=== PATIENT | female | born 1965 | race Caucasian/White ===

== ENCOUNTER 2016-11-17 11:19 | Emergency (ER) | payer OTHER, MEDICARE ==
[~2016-11-17] VITALS: Ht 160 cm; Wt 86.2 kg
[~2016-11-17 11:19] MED LIST: ABILIFY 5MG5 MG PO; BENZTROPINE MESY1 M1 PO; BISACODYL10 MG PR; CYMBALTA 30 MG30 MG PO; DESYREL50 MG PO; DILAUDID 4 MG TA4 MG PO; DILAUDID8 MG PO; DOCUSATE SODIU100 MG PO; HYDROMORPHONE HC2 MG PO; LITHIUM CARBON150 M1 PO; LITHIUM CARBON300 M4 PO; MARINOL2.5 M1 PO; MIRTAZAPINE7.5 M1; MORPHINE SUL20 MG/ML; OMEPRAZOLE40 MG PO; PHENERGAN25 M1 PO; PRISTIQ 50MG50 MG PO; PRISTIQ ER100 MG PO; QUETIAPINE FUMA25 M1 PO; QUETIAPINE FUMA50 M1 PO; REGLAN10 MG PO; SENOKOT8.6 MG PO; TIGAN300 MG PO; TRANS SCOPE PAT1 PAT TOP; TRAZODONE HCL300 MG PO; TYLENOL TAB 32325 MG PO; VENLAFAXINE HC150 MG PO; VENLAFAXINE HCL75 M1 PO; VITAMIN D1000 IU PO; VITAMIN E400 IU PO; ZOFRAN 4MG ORALL4 MG PO; ZOFRAN ODT4 M1 SL; [UNRECOGNIZED DRUG - MIXTURE]; [UNRECOGNIZED DRUG - OTHER]; [UNRECOGNIZED DRUG - OTHER]
--- NOTE | 2016-11-17 13:05 | ED GI/GU/ABDOMINAL COMPLAINT ---
History of Present Illness General Chief Complaint: Nausea, Vomiting, Diarrhea Stated Complaint: NVD Source: patient, old records Exam Limitations: no limitations Vital Signs & Intake/Output Vital Signs & Intake/Output Vital Signs Date Time Temp Pulse Resp B/P Pulse O2 O2 Flow FiO2 Ox Delivery Rate 11/17 1528 98.6 85 18 128/87 98 Room Air 11/17 1147 97.1 114 20 138/90 99 Room Air Allergies Coded Allergies: amitriptyline (Intermediate, HIVES 07/31/16) coconut (Intermediate, HIVES 07/31/16) codeine (HIVES 07/31/16) fluoxetine (HIVES 07/31/16) hydromorphone (INJECTABLE CAUSES NAUSEA/HIVES CAN TOLERATE PO 07/31/16) Reconcile Medications Benztropine Mesylate 1 MG TABLET 1 TAB PO QPM MENTAL HEALTH (Reported) [place] Carbonate 300 MG CAPSULE 2 CAP PO QPM MENTAL HEALTH (Reported) [place] Carbonate 150 MG CAPSULE 1 CAP PO QPM MENTAL HEALTH (Reported) [MORP,BACLOFEN,GABAPE] PAIN PUMP (Reported) Promethazine HCl 25 MG TABLET 1 TAB PO Q6P PRN nausea Quetiapine Fumarate 50 MG TABLET 1-2 TAB PO QPM MENTAL HEALTH (Reported) Trimethobenzamide HCl (Tigan) 300 MG CAPSULE 1 TAB PO BID PRN NAUSEA Venlafaxine HCl (Venlafaxine HCl ER) 75 MG CAP.ER.24H 1 CAP PO QPM MENTAL HEALTH (Reported) Venlafaxine HCl (Venlafaxine HCl ER) 150 MG CAP.ER.24H 1 CAP PO DAILY MENTAL HEALTH (Reported) Triage Note: C/O NAUSEA WITH DRY HEAVES X 2 DAYS. DENIES ABODMINAL PAIN, VOMITING OR DIARRHEA. Triage Nurses Notes Reviewed? yes ? N Is pt currently ? No HPI: 51-year-old female here with complaints of 4 days of dry heaving and severe nausea. No active vomiting, no diarrhea. She complains of epigastric Aching and burning. She has no fever or flulike illness. there is a significant gastrointestinal virus presently in the community. unalbe to take in fluids or take her medications. no blood no travel. chronic pain patient has had pain pump. Past History Travel History Traveled to [place] past 21 day No Medical History Any Pertinent Medical History? 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 No Review of Systems Review of Systems Constitutional: Reports: see HPI. EENTM: Reports: no symptoms. Respiratory: Reports: no symptoms. Cardiovascular: Reports: no symptoms. GI: Reports: see HPI. Genitourinary: Reports: no symptoms. Musculoskeletal: Reports: no symptoms. Skin: Reports: no symptoms. Neurological/Psychological: Reports: no symptoms. Hematologic/Endocrine: Reports: no symptoms. Immunologic/Allergic: Reports: no symptoms. All Other Systems: Reviewed and Negative Physical Exam Physical Exam General Appearance: well developed/nourished Head: atraumatic, normal appearance Eyes: Bilateral: normal appearance. Ears, Nose, Throat, Mouth: hearing grossly normal, dry mucous membranes, poor dentition Neck: normal inspection, supple, full range of motion Respiratory: normal breath sounds, chest non-tender, no respiratory distress Cardiovascular: tachycardia Gastrointestinal: normal bowel sounds, soft, non-tender, no organomegaly Back: normal inspection Extremities: normal range of motion Neurologic/Psych: no motor/sensory deficits, awake, alert, oriented x 3 Skin: intact, normal color, warm/dry Core Measures ACS in differential dx? No Severe Sepsis Present: No Septic Shock Present: No Progress Differential Diagnosis: AAA, AMI, appendicitis, biliary colic, bowel obstruction , colon cancer, cholecystitis, diverticulitis, ectopic , endometritis, esophageal varices, gastritis, hepatitis, hernia, hemorrhoids, ischemic bowel, inflamm bowel dis, intrauterine , kidney stone, Dominique-Francisca tear, ovarian cyst, ovarian torsion, pancreatitis, PID/cervicitis, peptic ulcer, PUD/ GERD, perforated viscous, SBO, threatened AB, UTI/pyelo Plan of Care: Orders Procedure Date/time Status Saline Lock 11/17 1309 Active COMPREHENSIVE METABOLIC PANEL 11/17 1309 Complete CBC WITHOUT DIFFERENTIAL 11/17 1309 Complete Laboratory Tests 11/17/16 1317: Anion Gap 16, Estimated GFR > 60, BUN/Creatinine Ratio 21.4, Glucose 135 H, Calcium 9.9, Total Bilirubin 0.5, AST 30, ALT 32, Alkaline Phosphatase 93, Total Protein 7.6, Albumin 4.6, Globulin 3.0, Albumin/Globulin Ratio 1.5, CBC w Diff NO MAN DIFF REQ, RBC 4.67, MCV 91.4, MCH 30.9, RDW 13.0, MPV 8.1, Gran % 79.9 H , Lymphocytes % 14.8 L, Monocytes % 4.9, Eosinophils % 0.1, Basophils % 0.3, Absolute Granulocytes 9.3 H, Absolute Lymphocytes 1.7, Absolute Monocytes 0.6, Absolute Eosinophils 0, Absolute Basophils 0, PUBS MCHC 33.9 Initial ED EKG: none Comments: Treated with Zofran without relief, also given IV fluids, reevaluation she is given Phenergan and she improved after this. She is longer nauseous, no vomiting. No abdominal tenderness. Her laboratory values unremarkable, likely this is viral gastroenteritis which has been prevalent in the community. She will return with worsening abdominal pain nausea vomiting fever. Departure Departure Disposition: HOME OR SELF CARE Condition: Stable Clinical Impression Primary Impression: Gastroenteritis Secondary Impressions: Dehydration Referrals: DAVID MARTINEZ,WANG Sheppard (PCP/Family) Additional Instructions: Clear liquid diet, advance as tolerated Drink plenty of fluids. Return with worsening abdominal pain nausea vomiting or fever. Take Phenergan as needed for nausea Departure Forms: Customer Survey General Discharge Information Prescriptions: Current Visit Scripts Promethazine HCl 1 TAB PO Q6P PRN nausea #15 TAB
[2016-11-17 13:25] LABS: ABSOLUTE EOSINOPHIL COUNT 0 /CUMM (0.0-0.7); ABSOLUTE GRANULOCYTE CT 9.3 /CUMM (1.4-6.5); ABSOLUTE LYMPH COUNT 1.7 /CUMM (1.2-3.4); ABSOLUTE MONOCYTE COUNT 0.6 /CUMM (0.10-0.60); EOSINOPHIL % 0.1 % (0-5); HEMATOCRIT 42.7 % (37-47); PLATELET COUNT 322 /CUMM (130-400)
[2016-11-17 13:27] LABS: ABSOLUTE BASOPHIL COUNT 0 /CUMM (0.0-0.2); BASOPHIL % 0.3 % (0.0-2.0); GRANULOCYTE % 79.9 % (42.2-75.2); MEAN CORPUSCULAR HGB 30.9 PG (27.0-31.0); MEAN CORPUSCULAR HGB CONC 33.9 G/DL (33.0-37.0); MEAN CORPUSCULAR VOLUME 91.4 FL (81.0-99.0); MEAN PLATELET VOLUME 8.1 FL (7.4-10.4); RED BLOOD CELL CT 4.67 /CUMM (4.20-5.40)
[2016-11-17 13:28] LABS: WHITE BLOOD CELL COUNT 11.7 /CUMM (4.8-10.8)
[2016-11-17] MEDS ORDERED: PROMETHAZINE HC25 M3 PO (15:07)
[2016-11-17 15:28] VITALS: BP 128/87
== END 2016-11-17 15:29 ==
LOC: ERH 11:19
PROVIDERS: Physician Assistant Surgical
DX: K52.9 Noninfective gastroenteritis and colitis, unspecified (principal); E86.0 Dehydration
CPT/HCPCS: 96374; 96375; J2405; J2550

== ENCOUNTER 2016-11-24 09:34 | Emergency (ER) | payer OTHER, MEDICARE ==
[~2016-11-24] VITALS: Ht 160 cm; Wt 82.6 kg
[~2016-11-24 09:34] MED LIST changes: +PROMETHAZINE HC25 M3 PO
[2016-11-24] MEDS ORDERED: TEGRETOL200 M1 PO (10:03)
[2016-11-24] MEDS ORDERED: MIRTAZAPINE7.5 M1 PO (10:04)
[2016-11-24] MEDS ORDERED: QUETIAPINE FUMA25 M1 PO (10:05)
[2016-11-24] MEDS ORDERED: QUETIAPINE FUM100 M1 PO (10:05)
[2016-11-24 10:09] LABS: ABSOLUTE BASOPHIL COUNT 0.1 /CUMM (0.0-0.2); ABSOLUTE EOSINOPHIL COUNT 0.3 /CUMM (0.0-0.7); ABSOLUTE GRANULOCYTE CT 7.5 /CUMM (1.4-6.5); ABSOLUTE LYMPH COUNT 2.9 /CUMM (1.2-3.4); ABSOLUTE MONOCYTE COUNT 0.3 /CUMM (0.10-0.60); BASOPHIL % 0.5 % (0.0-2.0); EOSINOPHIL % 2.3 % (0-5); GRANULOCYTE % 68.2 % (42.2-75.2); HEMATOCRIT 44.2 % (37-47); MEAN CORPUSCULAR HGB 30.7 PG (27.0-31.0); MEAN CORPUSCULAR HGB CONC 32.9 G/DL (33.0-37.0); MEAN CORPUSCULAR VOLUME 93.3 FL (81.0-99.0); MEAN PLATELET VOLUME 8.6 FL (7.4-10.4); PLATELET COUNT 307 /CUMM (130-400); RBC DISTRIBUTION WIDTH 13.9 % (11.5-14.5); RED BLOOD CELL CT 4.74 /CUMM (4.20-5.40)
--- NOTE | 2016-11-24 10:34 | RADIOLOGY REPORT ---
EXAMINATION: XR PORTABLE CHEST CLINICAL INFORMATION: Syncope COMPARISON: 11/14/2015 TECHNIQUE: Portable view of the chest was obtained. FINDINGS: Cardiac silhouette is at the upper limits of normal in size which may be related to the AP technique. No focal consolidation, pleural effusion or pneumothorax. Osseous structures appear maintained. IMPRESSION: No radiographic evidence of acute pulmonary disease.
--- NOTE | 2016-11-24 10:44 | ED MVC/FALL/TRAUMA COMPLAINT ---
History of Present Illness General Chief Complaint: Syncope and Near-Syncope Stated Complaint: BIBA SYNCOPE Source: patient, old records, EMS Exam Limitations: no limitations Vital Signs & Intake/Output Vital Signs & Intake/Output Vital Signs Date Time Temp Pulse Resp B/P Pulse O2 O2 Flow FiO2 Ox Delivery Rate 11/24 2302 99.4 106 20 120/82 92 Room Air 11/24 2011 97.7 100 20 114/80 97 Room Air 11/24 1812 113 20 104/80 94 Room Air 11/24 1542 98.5 108 20 100/70 95 Room Air 11/24 1434 97.7 102 20 96/69 95 Room Air 11/24 1320 97.8 103 18 87/62 94 11/24 1218 98.0 110 20 93/66 95 Room Air 11/24 1110 97.1 118 18 99/64 96 11/24 0952 98.8 140 20 105/71 94 Room Air 11/24 0937 98.1 144 18 105/71 94 Allergies Coded Allergies: amitriptyline (Intermediate, HIVES 07/31/16) coconut (Intermediate, HIVES 07/31/16) codeine (HIVES 07/31/16) fluoxetine (HIVES 07/31/16) hydromorphone (INJECTABLE CAUSES NAUSEA/HIVES CAN TOLERATE PO 07/31/16) Reconcile Medications Benztropine Mesylate 1 MG TABLET 1 TAB PO QPM MENTAL HEALTH (Reported) Carbamazepine (Tegretol) 200 MG TABLET 1 TAB PO BID MENTAL HEALTH (Reported) [place] Carbonate 300 MG CAPSULE 2 CAP PO QPM MENTAL HEALTH (Reported) Mirtazapine 7.5 MG TABLET 1 TAB PO QPM SLEEP (Reported) [MORP,BACLOFEN,GABAPE] PAIN PUMP (Reported) Quetiapine Fumarate 100 MG TABLET 1 TAB PO QPM SLEEP (Reported) Quetiapine Fumarate 25 MG TABLET 1 TAB PO QPM PRN SLEEP (Reported) Venlafaxine HCl (Venlafaxine HCl ER) 150 MG CAP.ER.24H 1 CAP PO BID MENTAL HEALTH (Reported) Triage Note: PT BIBA FROM OUT PT PSYCH FOR SYNCOPAL EPISODE. PT STATES THIS WAS THE THIRD EPISODE THIS MORNING. PT DENIES CP/SOB. PT FOUND TO BE HYPOTENSIVE BY EMS 84/40. BP 105/71 IN ED. PT TACHY IN 140'S Triage Nurses Notes Reviewed? yes HPI: Patient presents for evaluation of multiple falls beginning last night. Patient states she has fallen 3 times with associated dizziness overnight. At about 825 this morning she fell again with associated dizziness preceding. Bystanders noticed the falling and the police were contacted. She was brought to the outpatient department at [facility] and fell yet again. Patient states she was seen in the emergency department last week for dehydration. She denies any associated chest pain, palpitations, visual changes, headaches, focal weakness, slurred speech, vomiting, diarrhea or leg swelling. She states that she has maintained a normal PO2 intake but admits that she probably doesn't eat and drink as much as she should. (MARCOS MARTINEZ,ANIYA Larson) Past History Travel History Traveled to [facility] past 21 day No Medical History Any Pertinent Medical History? 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 History of MRSA: No History of VRE: No History of CDIFF: No Surgical History Surgical History: hysterectomy, she believes she had an appendectomy when she had her hysterectomy Hiatal hernia surgery intrathecal pain pump and replacement of pain pump in September 2016 Psychosocial History Who do you live with Patient/Self Services at Home None What is your primary language Lao Tobacco Use: Never used ETOH Use: denies use Illicit Drug Use: denies illicit drug use Family History Family History, If Any: MOTHER FH: breast cancer Relation not specified for: FH: heart disease FH: HTN (hypertension) Hx Contributory? No (ANIYA RODRÍGUEZ MD) Review of Systems Review of Systems Constitutional: Reports: no symptoms. Eyes: Reports: no symptoms. Ears, Nose, Throat, Mouth: Reports: no symptoms. Respiratory: Reports: no symptoms. Cardiovascular: Reports: no symptoms. Gastrointestinal/Abdominal: Reports: no symptoms. Genitourinary: Reports: no symptoms. Musculoskeletal: Reports: no symptoms. Skin: Reports: no symptoms. Neurological/Psychological: Reports: no symptoms. All Other Systems: Reviewed and Negative (ANIYA RODRÍGUEZ MD) Physical Exam Physical Exam General Appearance: see below Comments: Gen.: Well-nourished, well-developed, no acute respiratory distress. Head: Normocephalic, atraumatic. Eyes: Normal inspection bilaterally Ears: Normal inspection bilaterally Nose: Normal inspection Throat/mouth : Moist mucosa Neck: Supple, full range of motion, no goiter, no carotid bruits, equal carotid pulses Heart: Regular rate and rhythm, no murmurs rubs or gallops Lungs: Clear to auscultation bilaterally with normal air entry Chest: Nontender Back: Normal range of motion Abdomen: Soft, nontender, nondistended, normal bowel sounds Extremities: Normal range of motion grossly, equal radial pulses, no cyanosis clubbing or edema, calves nontender Neurologic: Cranial nerves grossly intact, speech is clear, no apparent aphasia Skin: warm and dry Psychiatric: Calm, cooperative, no apparent delusions or hallucinations Core Measures ACS in differential dx? No Severe Sepsis Present: No Septic Shock Present: No (MARCOS MARTINEZ,ANIYA Larson) Progress Differential Diagnosis: dehydration, electrolyte abnormality, vertigo, syncope, dysrhythmia, hypotension, vasovagal episodes Plan of Care: Orders Procedure Date/time Status URINALYSIS 11/24 1754 Complete URINE DRUG SCREEN FOR ER ONLY 11/24 1502 Complete BASIC METABOLIC PANEL 11/24 1435 Complete Add-on Test (ER Only) 11/24 1059 Active Add-on Test (ER Only) 11/24 1046 Active MISTAKE 11/24 1046 Active THYROID STIMULATING HORMONE 11/24 0945 Complete TEGRETOL LEVEL 11/24 0945 Complete MAGNESIUM 11/24 0945 Complete LITHIUM 11/24 0945 Complete FREE T4 11/24 0945 Complete EKG 11/24 0941 Active TROPONIN LEVEL 11/24 0939 Complete COMPREHENSIVE METABOLIC PANEL 11/24 0939 Complete CBC WITHOUT DIFFERENTIAL 11/24 0939 Complete Laboratory Tests 11/24/16 1755: Urine Opiates Screen > 4000.00 H, Methadone Screen 54, Barbiturate Screen < 60, Ur Phencyclidine Scrn 6.30, Amphetamines Screen < 100, U Benzodiazepines Scrn < 85, Urine Cocaine Screen < 50, Urine Cannabis Screen < 5.00, Urinalysis MOD H, Urine Color YEL, Urine Clarity CLEAR, Urine pH 6.0, Ur Specific [place] >= 1.030 , Urine Protein TRACE H, Urine Ketones NEG, Urine Nitrite NEG, Urine Bilirubin NEG, Urine Urobilinogen 0.2, Ur Leukocyte Esterase TRACE H, Ur Microscopic SEDIMENT EXAMINED, Urine RBC RARE, Urine WBC 15-25 H, Ur Epithelial Cells FEW, Urine Mucus MOD H, Urine Hemoglobin NEG, Urine Glucose NEG 11/24/16 1444: Anion Gap 9, Estimated GFR > 60, BUN/Creatinine Ratio 12.2, Glucose 82, Calcium 8.4 11/24/16 0945: Anion Gap 19 H, Estimated GFR 58 L, BUN/Creatinine Ratio 12.0, Glucose 368 H, Calcium 9.5, Magnesium 1.6, Total Bilirubin 0.5, AST 25, ALT 35, Alkaline Phosphatase 80, Troponin I 0.04, Total Protein 6.9, Albumin 4.3, Globulin 2.6, Albumin/Globulin Ratio 1.7, TSH 2.010, Free T4 1.44, CBC w Diff NO MAN DIFF REQ, RBC 4.74, MCV 93.3, MCH 30.7, RDW 13.9, MPV 8.6, Gran % 68.2, Lymphocytes % 26.7 , Monocytes % 2.3, Eosinophils % 2.3, Basophils % 0.5, Absolute Granulocytes 7.5 H, Absolute Lymphocytes 2.9, Absolute Monocytes 0.3, Absolute Eosinophils 0.3, Absolute Basophils 0.1, PUBS MCHC 32.9 L, Carbamazepine 5.7, [place] 0.7 Diagnostic Imaging: Discussed w/RAD: Radiology Read. CXR Impression: PATIENT: KATARZYNA EASTMAN PRESENT AGE: 51 PATIENT ACCOUNT NO: [id number] : 63 LOCATION: [facility] ORDERING PHYSICIAN: ANIYA RODRÍGUEZ MD SERVICE DATE: 11/24/16 EXAM TYPE: RAD - XRY-PORTABLE CHEST XRAY EXAMINATION: XR PORTABLE CHEST CLINICAL INFORMATION: Syncope COMPARISON: 11/14/2015 TECHNIQUE: Portable view of the chest was obtained. FINDINGS: Cardiac silhouette is at the upper limits of normal in size which may be related to the AP technique. No focal consolidation, pleural effusion or pneumothorax. Osseous structures appear maintained. IMPRESSION: No radiographic evidence of acute pulmonary disease. DICTATED BY: NORMA BARAJAS DO DATE/TIME DICTATED:11/24/161029 OUTSOLE LEVELER:FRIDA DATE/TIME TRANSCRIBED:1029 CONFIDENTIAL, DO NOT COPY WITHOUT APPROPRIATE AUTHORIZATION. < Electronically signed in Other Vendor System> SIGNED BY: NORMA BARAJAS DO 11/24/16 1034 Comments: 11/24/2016 4:59:49 PM patient's heart rate and blood pressure have improved during her emergency department stay with intravenous fluids. Considering ED observation for additional fluids and continued monitoring of blood pressure and heart rate. 11/24/2016 7:36:01 PM patient's blood pressure is now normal. 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 Plan continued monitoring of blood pressure and discharge his blood pressure remains stable. (MARCOS MARTINEZ,ANIYA Larson) Comments: Improved after interventions. (THUY MEDEL MD) Departure Departure Condition: Stable Referrals: WANG HERNANDEZ MD (PCP/Family) Departure Forms: Customer Survey General Discharge Information (MARCOS MARTINEZ,ANIYA Larson) Departure Time of Disposition: 2318 Disposition: HOME OR SELF CARE Clinical Impression Primary Impression: Hypotension Qualifiers: Hypotension type: other hypotension type Qualified Code: I95.89 - Other hypotension Secondary Impressions: Syncope, near, Tachycardia, Volume depletion Additional Instructions: Drink plenty of clear liquids until your urine runs clear (THUY MEDEL MD)
[2016-11-24 11:21] LABS: LITHIUM 0.7 mmol/L (0.6-1.2)
[2016-11-24 23:02] VITALS: BP 120/82
== END 2016-11-24 23:48 ==
LOC: ERH 09:34
PROVIDERS: Emergency Medicine
DX: I95.9 Hypotension, unspecified (principal); R55 Syncope and collapse; R00.0 Tachycardia, unspecified; E86.9 Volume depletion, unspecified
CPT/HCPCS: 80307; 81001; 93005; 93010; 96360; 96361

== ENCOUNTER 2016-11-29 12:31 | Emergency (ER) | payer OTHER, MEDICARE ==
[~2016-11-29] VITALS: Ht 160 cm; Wt 87.1 kg
[~2016-11-29 12:31] MED LIST changes: +MIRTAZAPINE7.5 M1 PO; +QUETIAPINE FUM100 M1 PO; +TEGRETOL200 M1 PO
[2016-11-29 13:17] LABS: ABSOLUTE EOSINOPHIL COUNT 0 /CUMM (0.0-0.7); MEAN CORPUSCULAR HGB 30.7 PG (27.0-31.0)
[2016-11-29 13:22] LABS: ABSOLUTE BASOPHIL COUNT 0.1 /CUMM (0.0-0.2); ABSOLUTE GRANULOCYTE CT 7.4 /CUMM (1.4-6.5); ABSOLUTE LYMPH COUNT 4.3 /CUMM (1.2-3.4); ABSOLUTE MONOCYTE COUNT 0.7 /CUMM (0.10-0.60); BASOPHIL % 0.6 % (0.0-2.0); EOSINOPHIL % 0.4 % (0-5); MEAN CORPUSCULAR HGB CONC 33.1 G/DL (33.0-37.0); MEAN CORPUSCULAR VOLUME 92.7 FL (81.0-99.0); MEAN PLATELET VOLUME 9.3 FL (7.4-10.4); PLATELET COUNT 261 /CUMM (130-400); RBC DISTRIBUTION WIDTH 13.4 % (11.5-14.5); RED BLOOD CELL CT 5.36 /CUMM (4.20-5.40); WHITE BLOOD CELL COUNT 12.5 /CUMM (4.8-10.8)
[2016-11-29 13:25] LABS: HEMATOCRIT 49.7 % (37-47)
--- NOTE | 2016-11-29 15:34 | ED AMS/SEIZURE/WEAK/DIZZY ---
History of Present Illness General Chief Complaint: General Adult Stated Complaint: WEAKNESS Source: patient, old records Exam Limitations: no limitations Vital Signs & Intake/Output Vital Signs & Intake/Output Vital Signs Date Time Temp Pulse Resp B/P Pulse O2 O2 Flow FiO2 Ox Delivery Rate 11/29 1643 96 Room Air 11/29 1457 97.5 76 18 93 Room Air 11/29 1239 96.8 111 20 118/90 92 Room Air Allergies Coded Allergies: amitriptyline (Intermediate, HIVES 07/31/16) coconut (Intermediate, HIVES 07/31/16) codeine (HIVES 07/31/16) fluoxetine (HIVES 07/31/16) hydromorphone (INJECTABLE CAUSES NAUSEA/HIVES CAN TOLERATE PO 07/31/16) Reconcile Medications Benztropine Mesylate 1 MG TABLET 1 TAB PO QPM MENTAL HEALTH (Reported) Carbamazepine (Tegretol) 200 MG TABLET 1 TAB PO BID MENTAL HEALTH (Reported) [place] Carbonate 300 MG CAPSULE 2 CAP PO QPM MENTAL HEALTH (Reported) Mirtazapine 7.5 MG TABLET 1 TAB PO QPM SLEEP (Reported) [MORP,BACLOFEN,GABAPE] PAIN PUMP (Reported) Ondansetron (Zofran Odt) 4 MG TAB.RAPDIS 1 TAB SL Q6P PRN NAUSEA/VOMITING Quetiapine Fumarate 100 MG TABLET 1 TAB PO QPM SLEEP (Reported) Quetiapine Fumarate 25 MG TABLET 1 TAB PO QPM PRN SLEEP (Reported) Ranitidine HCl (Zantac) 300 MG TABLET 1 TAB PO QPM stomache acid Venlafaxine HCl (Venlafaxine HCl ER) 150 MG CAP.ER.24H 1 CAP PO BID MENTAL HEALTH (Reported) Triage Note: 51 Y/O FEMALE BIBA (TO TRIAGE). C/O NAUSEA AND NOT TOLERATING PO INTAKE. STATES SHE FEELS WEAK AND TIRED. WAS EVAL'D IN ED THURS AND TREATED FOR DEHYDRATION PER PT. AFEBRILE. Triage Nurses Notes Reviewed? yes HPI: Patient presents for evaluation of generalized weakness and nausea that began roughly a week ago. she was evaluated at the [facility] emergency department about 5 days ago and treated for dehydration. Patient states her appetite has been very poor and she gags when she tries to eat or even drink liquids. patient denies associated vomiting (she has been dry heaving) or diarrhea. Patient's urine output has been diminished and the color of the urine has been dark orange. Patient states she also fell while doctors office and at home due to dizziness. Patient however denies dizziness chest pain abdominal pain headaches or visual changes currently. Past History Travel History Traveled to [place] past 21 day No Medical History Any Pertinent Medical History? 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 No Review of Systems Review of Systems Constitutional: Reports: see HPI. EENTM: Reports: no symptoms. Respiratory: Reports: no symptoms. Cardiovascular: Reports: no symptoms. GI: Reports: see HPI. Genitourinary: Reports: see HPI. Musculoskeletal: Reports: no symptoms. Skin: Reports: no symptoms. Neurological/Psychological: Reports: no symptoms. Hematologic/Endocrine: Reports: no symptoms. Immunologic/Allergic: Reports: no symptoms. All Other Systems: Reviewed and Negative Physical Exam Physical Exam General Appearance: see below Comments: Gen.: Well-nourished, well-developed, no acute respiratory distress. Head: Normocephalic, atraumatic. Eyes: Normal inspection bilaterally Ears: Normal inspection bilaterally Nose: Normal inspection Throat/mouth : Moist mucosa Neck: Supple, full range of motion, no goiter Heart: Regular rate and rhythm, no murmurs rubs or gallops Lungs: Clear to auscultation bilaterally with normal air entry Chest: Nontender Back: Normal range of motion Abdomen: Soft, nontender, nondistended, normal bowel sounds Extremities: Normal range of motion grossly, equal radial pulses, no cyanosis, minimal bilateral pretibial pitting edema Neurologic: Cranial nerves grossly intact, speech is clear Skin: warm and dry Psychiatric: Calm, cooperative, no apparent delusions or hallucinations, flat affect Core Measures ACS in differential dx? No CVA/TIA Diagnosis: No Severe Sepsis Present: No Septic Shock Present: No Progress Differential Diagnosis: dehydration, electrolyte abnormality, fatigue syndrome, depression Plan of Care: Orders Procedure Date/time Status URINALYSIS 11/29 1252 Complete COMPREHENSIVE METABOLIC PANEL 11/29 1252 Complete CBC WITHOUT DIFFERENTIAL 11/29 1252 Complete Laboratory Tests 11/29/16 1525: Urine Color YEL, Urine Clarity HAZY H, Urine pH 5.5, Ur Specific [place] >= 1.030, Urine Protein 100 H, Urine Ketones TRACE H, Urine Nitrite NEG, Urine Bilirubin POS@ICTO H, Urine Urobilinogen 2.0 H, Ur Leukocyte Esterase NEG, Ur Microscopic SEDIMENT EXAMINED, Urine RBC RARE, Urine WBC 1-3 H, Ur Epithelial Cells FEW, Hyaline Casts 5-10 H, Urine Mucus MOD H, Urine Hemoglobin NEG, Urine Glucose NEG 11/29/16 1306: Anion Gap 17 H, Estimated GFR 58 L, BUN/Creatinine Ratio 19.0, Glucose 153 H, Calcium 9.9, Total Bilirubin 0.8, AST 35, ALT 45, Alkaline Phosphatase 96, Total Protein 8.0, Albumin 4.7, Globulin 3.3, Albumin/Globulin Ratio 1.4, CBC w Diff MAN DIFF ORDERED, RBC 5.36, MCV 92.7, MCH 30.7, RDW 13.4, MPV 9.3, Gran % 59.0, Lymphocytes % 34.1, Monocytes % 5.9, Eosinophils % 0.4, Basophils % 0.6, Absolute Granulocytes 7.4 H, Absolute Lymphocytes 4.3 H, Absolute Monocytes 0.7 H, Absolute Eosinophils 0, Absolute Basophils 0.1, Platelet Estimate ADEQUATE, Polychromasia 1+, Anisocytosis 1+, Macrocytic Cells FEW, PUBS MCHC 33.1 Initial ED EKG: none Comments: 11/29/2016 7:02:59 PM Soumya has been treated with IV normal saline and IV Zofran with improvement.. Soumya has tolerated clear liquids here in the emergency department. She is asking to return home. The reason for her generalized weakness and dry heaves is unclear at this point so I have asked that she follow up with her primary care physician for further evaluation and treatment. Departure Departure Disposition: HOME OR SELF CARE Condition: Stable Clinical Impression Primary Impression: Generalized weakness Secondary Impressions: Vomiting Qualifiers: Vomiting type: unspecified Vomiting Intractability: non-intractable Nausea presence: with nausea Qualified Code: R11.2 - Nausea with vomiting, unspecified Referrals: DAVID MARTINEZ,WANG Sheppard (PCP/Family) Additional Instructions: Zofran as needed for nausea or vomiting. Clear liquid diet until your nausea and vomiting resolved and then advance diet as tolerated. Zantac as prescribed to control stomach acid. Follow-up with your primary care doctor this week for reevaluation and possible GI referral. Return if any concerns or sudden worsening. Departure Forms: Customer Survey General Discharge Information Prescriptions: Current Visit Scripts Ondansetron (Zofran Odt) 1 TAB SL Q6P PRN NAUSEA/VOMITING #10 TAB Ranitidine HCl (Zantac) 1 TAB PO QPM #15 TAB
[2016-11-29] MEDS ORDERED: ZOFRAN ODT4 M1 SL (19:06)
[2016-11-29] MEDS ORDERED: ZANTAC300 MG PO (19:06)
[2016-11-29 19:37] VITALS: BP 108/75
== END 2016-11-29 19:55 ==
LOC: ERH 12:31
PROVIDERS: Emergency Medicine
DX: R53.1 Weakness (principal); R11.2 Nausea with vomiting, unspecified
CPT/HCPCS: 81001

== ENCOUNTER 2016-12-01 20:01 | Emergency (ER) | payer OTHER, MEDICARE ==
[~2016-12-01] VITALS: Ht 160 cm; Wt 97.5 kg
[~2016-12-01 20:01] MED LIST changes: +ZANTAC300 MG PO
--- NOTE | 2016-12-01 20:26 | ED CRITICAL CARE ---
History of Present Illness General Chief Complaint: Cardiopulmonary Resuscitation Stated Complaint: BIBA CARDIAC ARREST Source: old records, EMS Exam Limitations: clinical condition Vital Signs & Intake/Output Vital Signs & Intake/Output Vital Signs Date Time Temp Pulse Resp B/P Pulse O2 O2 Flow FiO2 Ox Delivery Rate 12/01 2042 Trach Mask 10L 12/01 2040 0 0/0 Allergies Coded Allergies: amitriptyline (Intermediate, HIVES 07/31/16) coconut (Intermediate, HIVES 07/31/16) codeine (HIVES 07/31/16) fluoxetine (HIVES 07/31/16) hydromorphone (INJECTABLE CAUSES NAUSEA/HIVES CAN TOLERATE PO 07/31/16) Reconcile Medications Benztropine Mesylate 1 MG TABLET 1 TAB PO QPM MENTAL HEALTH (Reported) Carbamazepine (Tegretol) 200 MG TABLET 1 TAB PO BID MENTAL HEALTH (Reported) [place] Carbonate 300 MG CAPSULE 2 CAP PO QPM MENTAL HEALTH (Reported) Mirtazapine 7.5 MG TABLET 1 TAB PO QPM SLEEP (Reported) [MORP,BACLOFEN,GABAPE] PAIN PUMP (Reported) Ondansetron (Zofran Odt) 4 MG TAB.RAPDIS 1 TAB SL Q6P PRN NAUSEA/VOMITING Quetiapine Fumarate 100 MG TABLET 1 TAB PO QPM SLEEP (Reported) Quetiapine Fumarate 25 MG TABLET 1 TAB PO QPM PRN SLEEP (Reported) Ranitidine HCl (Zantac) 300 MG TABLET 1 TAB PO QPM stomache acid Venlafaxine HCl (Venlafaxine HCl ER) 150 MG CAP.ER.24H 1 CAP PO BID MENTAL HEALTH (Reported) Triage Nurses Notes Reviewed? yes Onset: Just prior to arrival Duration: minute(s):, constant, continues in ED Timing: recent history Injury Environment: home Severity: severe Pain Location: none LMP (ages 10-50): post menopausal : No Patient currently breastfeeds: No HPI: Prior to admission for and found patient collapsed unresponsive and called 911. EMS began ACLS protocol for PEA and gave narcan due to chronic pain syndrome. Past History Travel History Traveled to [place] past 21 day No Medical History Any Pertinent Medical History? 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 No Review of Systems Review of Systems Constitutional: Reports: see HPI, weakness. Eyes: Reports: no symptoms. Ears, Nose, Throat, Mouth: Reports: no symptoms. Respiratory: Reports: no symptoms. Cardiovascular: Reports: no symptoms. Gastrointestinal/Abdominal: Reports: no symptoms. Genitourinary: Reports: no symptoms. Musculoskeletal: Reports: no symptoms. Skin: Reports: no symptoms. Neurological/Psychological: Reports: no symptoms. All Other Systems: Reviewed and Negative Comments Incomplete review secondary to arrest and intubation Physical Exam Physical Exam General Appearance: intubated, severe distress Head: atraumatic Eyes: Bilateral: other (pupils fixed and dilated). Ears, Nose, Throat, Mouth: no light reflex Neck: normal inspection Respiratory: mechanical breath sounds Cardiovascular: no heart sounds Peripheral Pulses: 0 carotid (R), 0 carotid (L), 0 femoral (R), 0 femoral (L) Gastrointestinal: soft Back: normal inspection Extremities: no ligament instability Neurologic/Psych: motor/sensory deficits Skin: cyanosis, pallor Core Measures ACS in differential dx? 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 package completed. ME notified. Departure Departure Time of Disposition: 2015 Disposition: Condition: Stable Clinical Impression Primary Impression: PEA (Pulseless electrical activity) Referrals: DAVID MARTINEZ,WANG Sheppard (PCP/Family) Departure Forms: General Discharge Information Critical Care Note Critical Care Note Critical Care Time: 30-74 min (40) Total CPR Time (mins): 45
[2016-12-01 20:41] VITALS: BP 0/0
--- NOTE | 2016-12-05 13:57 | OP PSYCH DISCHARGE ---
OUTPATIENT PSYCH DISCHARGE FIRST APPOINTMENT DATE: 06/06/97 LAST CONTACT DATE: 12/01/16 FOCUS OF TREATMENT- SYMPTOMS/ISSUES: depression and anxiety TOTAL NUMBER OF SESSIONS: > 20 SESSIONS TYPE OF TREATMENT: INDIVIDUAL, THERAPY GROUP, MEDICATION STATUS OF LAST CONTACT: FOCUS OF TREATMENT WAS: MINIMAL IMPROVEMENT REASON FOR DISCHARGE: ADDITIONAL COMMENTS: Patient's friend called to let agency know patient had from a heart attack on 12/01/16. 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 R/O unspecified bipolar MRE depressed. Medical Dx: chronic pain (has infusion pump), S/P back injury in 1995 requiring laminectomies (in 1996 and again 2013) chronic(back)pain syndrom Spinal Stenosis DJD hx of Migraine GERD borderline elevation in serum triglycerides Comments: primary (limited), social (limited); history of unresolved trauma; financial Medication List Current Psychiatric Med(s): effexor 150mg twice daily lithium 600mg daily PM tegretol 200mg twice daily remeron 7.5mg bedtime seroquel 100-125mg bedtime
== END 2016-12-01 22:24 | disposition expired ==
LOC: ERH 20:01
DX: I46.9 Cardiac arrest, cause unspecified (principal)
CPT/HCPCS: 1387; 94799; 96374; 96375; 99291